=== PATIENT | female | born 1955 | race Caucasian/White ===

== ENCOUNTER 2019-02-22 08:30 | Observation (INO) | payer MEDICARE, OTHER, SELFPAY ==
[2019-02-08 08:44] VITALS: BMI 31.3
[2019-02-21] VITALS (14 sets, daily range): BP systolic 108–153; BP diastolic 57–90; PULSE 55–71; RESP 15–19; TEMP 35.9–37.4; O2SAT 97–100; BMI 31.2
--- NOTE | 2019-02-21 | DI.RAD.S_ITS ---
PROCEDURE: XR KNEE LT 1TO2V INDICATIONS: TOTAL KNEE TECHNIQUE: 2 view(s) of the knee acquired. COMPARISON: None. FINDINGS: Bones: Patient is status post knee joint arthroplasty. Hardware components are in expected positions. Visualized bony structures are intact. Soft tissues: Overlying postoperative changes are noted. IMPRESSION: Postop changes from left total knee arthroplasty with anatomic left knee alignment. Dictated by: Vel Garcia M.D. on 02/21/2019 at 14:22 Approved by: Vel Garcia M.D. on 02/21/2019 at 14:22
[2019-02-21] MEDS: LACTATED RINGERS 1,000 ML 42 ML IV ×2 (10:56→12:49)
--- NOTE | 2019-02-21 11:27 | PM.PREOP ---
Pre-operative Note Interval Note History & Physical reviewed/Exam performed by Physician: Yes Changes to H&P: No
--- NOTE | 2019-02-21 11:28 | PM.OP.1 ---
Operative Date/Time/Diagnoses Date of procedure: 02/21/19 Time of procedure: 13:11 Pre-op diagnosis: Left knee osteoarthritis Post-op diagnosis: same Procedure & Clinicians Procedure: Left total knee arthroplasty Same procedure as scheduled: Yes Indications: The patient presents today for total knee arthroplasty after failure of conservative treatment. The nature of the procedure including the risks and benefits, alternatives, postoperative course and expected outcome were discussed and all questions answered. Consent was obtained. Operative site confirmed and marked. Surgeon: Errol Cook Associate Professor Computer Science: Sandi Matta Anesthesia Type: Spinal and Local Operative Notes Findings: Severe osteoarthritis with varus alignment. Closure Type: primary Specimen(s): none sent Prosthetic devices, grafts, tissues, transplants, or devices: Johnson Persona TKA 7N CR femoral component, E stemmed tibial component, 11 EF MC polyethylene tray and 35 mm all poly patella. Applied: implant(s) Estimated Blood Loss (mL): 50 Blood products transfused: none Tourniquet time (min): 49 Procedure in detail: The patient was taken to the operative suite and placed under spinal anesthesia. The patient was given prophylactic antibiotics prior to surgery. The patient was also given tranexamic acid, 1 g, just prior to surgery for postoperative hemostasis. The lateral knee was prepped and the joint injected with 20 mL of 1% Lidocaine with epinephrine. The knee was then prepped and draped in usual sterile fashion. The leg was exsanguinated with an Esmarch dressing and the tourniquet raised to 250 torr. A 15 cm anterior incision was made. Next a medial trivector arthrotomy was made. The extensor mechanism was marked to ensure accurate repair. Initial exposing dissection was carried out medially and laterally. The knee was then extended and the patellar thickness was measured and a cut made removing approximately 9 mm of bone. The patella was then sized and drilled. Some excess lateral bone was excised and the patellofemoral ligament released. The knee was then flexed and the intramedullary femoral guide shivani placed. The distal femoral cut was made in 5 ? of valgus at the + 0 position. The femoral size was measured and the appropriate cutting block was then placed and the anterior, posterior and chamfer cuts made. The extra medullary tibial alignment shivani was then placed along the anatomic axis of the tibia approximating the normal slope. The guide was set to remove approximately 10 mm from the less affected lateral side. The proximal tibial cut was then made with an oscillating saw. All meniscus and bony debris was then removed. Flexion extension gaps were checked. There was mild tightness medially as expected from her deformity. This was corrected with routine osteophyte and exposing releases as well as percutaneous release of the MCL with an 18 gauge needle. The soft tissues were then injected with a combination of 20 mL of half percent Marcaine with epinephrine and 20 mL of Exparel. The trial components were then placed. The knee went into full extension and flexion beyond 120?. There was excellent medial- lateral balance throughout motion with just slight increased lateral laxity compared to medial in both flexion and extension. Patellar tracking was excellent. The trial components were removed and the knee was cleansed with Pulsavac irrigation and dried. The final components were cemented in with high viscosity vacuum mixed bone cement with antibiotics. The knee was held in extension and the patellar clamp until the cement had adequately cured. The knee was irrigated and inspected for any further debris. The knee was then irrigated with dilute Betadine solution. The extensor mechanism was closed with 5 interrupted #1 Vicryl sutures in 90 degrees of flexion. The joint was then injected with a combination of 1 g of tranexamic acid and 20 mL of quarter percent Marcaine with epinephrine. The subcutaneous tissue was closed with 2-0 Vicryl. The skin was closed with contreras and surgical adhesive. An Aquacell dressing and Sp wrap were then applied. The patient tolerated the procedure well and was returned to recovery room in good condition. Complications: none Condition: stable Disposition: PACU Plan for aftercare: [facility] protocol for total knee arthroplasty.
[2019-02-21] MEDS: MIDAZOLAM 2 MG/2 ML VIAL 1 MG IV (11:29)
[2019-02-21] MEDS: ACETAMINOPHEN 325 MG TABLET 975 MG PO ×3 (11:37→23:14)
[2019-02-21] MEDS: fentaNYL 100 MCG/2 ML INJ 50 MCG IV (11:39)
[2019-02-21] MEDS: PREGABALIN 75 MG CAPSULE PO (11:39)
--- NOTE | 2019-02-21 11:41 | SUR.PREOP ---
Block start time [1129] . Monitoring initiated and maintained throughout procedure. Oxygen and medications given per anesthesiologist instructions. Patient remained stable throughout procedure, no adverse reactions noted. Block end time [1135].
[2019-02-21] MEDS: CEFAZOLIN 2 GM/100 ML FROZ.PIGGY IV ×2 (11:47→20:03)
--- NOTE | 2019-02-21 12:08 | SUR.OPER ---
Supine on padded OR bed. Pillow under head, arms secured on padded armboards <90 degree abduction. Safety belt across torso. Non-operative leg secured with tape over blanket over lower leg. Operative leg secured in DeMayo/Lefty positioner. Foam padded brace at thigh of operative leg.
[2019-02-21] MEDS: LIDOCAINE 1% W/EPI INJ 20 ML INJ (12:19)
[2019-02-21] MEDS: BUPIVACAINE 0.5% W/ EPI (PF) 20 ML, BUPIVACAINE LIPOSOME 266 MG, SODIUM CHLORIDE 0.9% 2... INJ (12:21)
[2019-02-21] MEDS: BUPIVACAINE 0.25% W/ EPI (PF) 20 ML, TRANEXAMIC ACID 1,000 MG, SODIUM CHLORIDE 0.9% 10 ML INJ (12:24)
--- NOTE | 2019-02-21 14:37 | PC.NURSE ---
1420 Pt arrived to rm 216 via bed from PACU. Pt is awake, A&Ox4. Sats 100% on r/a. VS wnl. family at bedside. started IVF. Pt denies pain. able to move legs/ankle waves. Taking in po fluids.
[2019-02-21] MEDS: LACTATED RINGERS 1,000 ML 125 ML IV ×2 (14:45→23:14)
[2019-02-21] MEDS: OXYCODONE IR 5 MG TABLET PO ×2 (17:05→20:39)
[2019-02-21] MEDS: ASPIRIN EC 81 MG TABLET PO (20:39)
[2019-02-22] MEDS: OXYCODONE IR 5 MG TABLET PO ×5 (02:57→23:47)
--- NOTE | 2019-02-22 03:09 | PC.NURSE ---
Patient is alert and oriented. At shift change stated pain was 3/10 and tolerable and was medicated with scheduled Tylenol per evening RN. Now woke up and got up to [facility] [place] 1 assist + walker but began having 9/10 sharp pain with the movement; medicated with Oxycodone and ice applied once back to bed and now states it is starting to calm down with lying still. Breath sounds CTA with RA sat of 97-99%. HRR. Denies nausea. BT present but denies flatus. Denies dysuria, frequency or urgency and is continent of urine. Dressing to left LE with mitch wrap is CDI. CMS intact bilaterally. Wearing bilateral SCD's. Was able to lift legs in/out of bed without assistance. Able to move self in bed. Fall risk score is moderate; bed alarm is activated.
[2019-02-22 03:11] VITALS: BP 129/82; PULSE 69; RESP 20; TEMP 36.7; O2SAT 99
[2019-02-22] MEDS: CEFAZOLIN 2 GM/100 ML FROZ.PIGGY IV (04:32)
[2019-02-22 05:37] LABS: Hematocrit 37.7 % (36-46); Hemoglobin 13.2 g/dL (12.0-16.0)
[2019-02-22] MEDS: LEVOTHYROXINE 125 MCG TABLET PO (06:07)
[2019-02-22] MEDS: HYDROMORPHONE 2 MG TABLET PO (08:10)
[2019-02-22] MEDS: ACETAMINOPHEN 325 MG TABLET 975 MG PO ×3 (08:10→21:00)
[2019-02-22] MEDS: ASPIRIN EC 81 MG TABLET PO ×2 (08:10→22:05)
[2019-02-22 08:43] VITALS: BP 134/74; PULSE 67; RESP 16; TEMP 37.7; O2SAT 97
--- NOTE | 2019-02-22 09:15 | PT.IIE ---
Current Diagnoses Bilateral primary osteoarthritis of knee (02/21/19) Surgery Performed Operation Date: 02/21/19 12:30 Actual Procedures p Total Knee Arthroplasty(Left) - Errol Cook MD Surgical History (Last Updated 02/08/19 @ 09:12 by Luz Spann, RN) History of arthroplasty of right knee (Acute ~2012) History of bladder suspension procedure (Acute ~12/1999) History of left nephrectomy (Acute ~03/2011) Hx of appendectomy (Acute ~03/2007) Hx of cholecystectomy (Acute ~06/2011) Medical History (Last Updated 02/08/19 @ 09:12 by Luz Spann RN) Arthritis (Acute) Depression (Acute) Dry eye (Acute) Fatty liver (Acute) H/O: hysterectomy (Acute ~12/1999) Hearing impaired (Acute) Hypothyroidism (Acute) Osteoarthritis (Acute) Restless legs syndrome (RLS) (Acute) Single kidney (Acute) Sleep apnea (Acute) Physical Therapy Inpatient Evaluation/Re-Eval M1 PT/OT-IP Prior Functional Status Start: 02/22/19 12:56 Freq: NEEDED Status: Active Protocol: Document 02/22/19 09:15 AB (Rec: 02/22/19 13:04 AB [id number]) Medical Review Prior Functional Status Medical History Reviewed Yes Communication able to make needs known Mobility and Gait pt stated that she is independent with all mobilities and ambulation without AD Social History Household Members significant other Living Arrangements House Number of Floors (Floors) One Floor Number of Stairs To Enter/Railing? 1 step to enter Home Environment Standard Height Toilet Tub/Shower Home Equipment Front Wheel Walker Straight Cane Hand Held Shower Grab Bars In Shower M2 PT-IP Current Condition Start: 02/22/19 12:56 Freq: NEEDED Status: Active Protocol: Document 02/22/19 09:15 AB (Rec: 02/22/19 13:04 AB [id number]) Physical Therapy Current Condition Current Condition Evaluation Date 02/22/19 Treatment Diagnosis s/p L TKA; difficulty in walking Onset Date 02/21/19 Weight Bearing Status Weight Bearing Status Weight Bear as Tolerated M3 PT-IP Subjective Start: 02/22/19 12:56 Freq: NEEDED Status: Active Protocol: Document 02/22/19 09:15 AB (Rec: 02/22/19 13:04 AB [id number]) Subjective Physical Therapy Visit Type Type Initial Evaluation Visit Start Time 09:15 Visit Stop Time 10:02 Total Visit Minutes 47 Number of MEDICAL ACCOUNTS RECEIVABLE SPECIALIST Visits 3 Physical Therapy Visit Comments Patient Comments pt agreeable to do PT Therapy Pain Assessment Pain When Pain Assessed At Rest Pain Present Pain Present Pain Reported Location Left Knee Intensity 4 Scale Used Numeric (1 - 10) Pain Management Techniques Apply Cold Re-positioning Timing of Activity with Medications M4 PT-IP Mobility and Gait Start: 02/22/19 12:56 Freq: NEEDED Status: Active Protocol: Document 02/22/19 09:15 AB (Rec: 02/22/19 13:04 [id number]) PT-Bed Mobility Assessment Supine to Sit Supine to Sit Minimal Assistance 1 Person Assistance Sit to Supine Sit to Supine Minimal Assistance 1 Person Assistance Scooting Scooting to Edge of Bed Standby Assistance PT-Transfer Assessment Sit to and From Stand Sit to and from Stand Minimal Assistance 1 Person Assistance Use of Upper Extremities Equipment Transfer Assistive Device Gait Belt Front Wheeled Walker Orthotic/Prosthetic Devices or Brace: No Transfers Transfer Destination Chair Transfer Technique Stand Step Pivot Transfer Ability Level of Assist 1 Person Assistance Comments Mobility Comments pt refused to stay up on the chair but agreed to ambulate Gait Assessment Gait Gait Assistance Required: Minimum Assistance Distance (Feet) 20 Able to Maintain Weight Bearing Status Yes During Gait Assistive Devices Assistive Device Gait Belt Front Wheeled Walker Orthotic/Prosthetic Devices or Brace: No Gait Deviations General Gait Pattern Antalgic Decreased Stride Length Decreased Feet Clearance Factors Limiting Gait Function Factors Limiting Gait Function Decreased Activity Tolerance Decreased Strength Limited Range of Motion Pain Poor Balance Poor Safety Awareness Comments Gait Comments pt with increase L knee flexion during late stance and requires cues to activate L quads PT-Balance Assessment Sitting Balance and Reactions Static Sitting Balance Ability Good Dynamic Sitting Balance Ability Good Standing Balance and Reactions Static Standing Balance Ability Fair Dynamic Standing Balance Ability Fair Device Used FWW M5 PT-IP Objective Assessments Start: 02/22/19 12:56 Freq: NEEDED Status: Active Protocol: Document 02/22/19 09:15 AB (Rec: 02/22/19 13:04 [id number]) Orientation Orientation/Cognition Level of Alertness Alert Orientation Name Age Birthday Month Date Year Day of Week Place Situation Language Function Ability No Deficits Noted Safety Awareness Understands Safety Issues Memory Description No Deficits Noted Gross Range of Motion Lower Extremity ROM Assessment Left Impaired Impairments L knee flexion: 30 deg L knee extension: 20 deg lacking to neutral Strength Lower Extremity Strength Assessment Left Impaired Hip 3+/5 Knee 3-/5 Coordination Assessment Gross Coordination Gross Coordination WNL Sensation Assessment Sensation Gross Sensation WNL Muscle Tone Muscle Tone WNL Yes M6 PT-IP Treatment Start: 02/22/19 12:56 Freq: NEEDED Status: Active Protocol: Document 02/22/19 09:15 AB (Rec: 02/22/19 13:04 AB [id number]) Physical Therapy Treatment Exercises Exercises Quad Sets Heel Slides Education Education Provided Precautions Weight Bearing Status Post-Op Packet Safety M7 PT-IP Assessment and Plan Start: 02/22/19 12:56 Freq: NEEDED Status: Active Protocol: Document 02/22/19 09:15 AB (Rec: 02/22/19 13:04 AB [id number]) PT Summary Assessment and Plan Potential Rehabilitation Potential Fair Status of Condition at Evaluation Evolving Summary Impairments Pain ROM Strength Balance Coordination Sensation Tone Cognition Bed Mobility Transfers Gait Activity Tolerance Assessment Summary pt unable to tolerate much activity with c/o increas L knee pain. pt requires mod A with mobility and cues for techniques and safety. d/c plan depending on progress and if significant other will be able to safely assist pt. will conduct caregiver training and stair training when appropriate. Goals Bed Mobility Goal Standby Assistance Transfer Goal Standby Assistance Front Wheeled Walker Gait Goal Standby Assistance Front Wheel Walker Gait Distance 150 Other Goals up/down 1 step using FWW SBA Days to Meet Goals 5 Frequency of Treatment Frequency Of Treatment Twice a Day Treatment Plan Physical Therapy Treatment Plan Bed Mobility Training Transfer Training Gait Training Therapeutic Exercise Balance Retraining Post Op Education Discharge Planning Hot or Cold Pack Neuromuscular Re-ed Coordination Retraining Manual Therapy Recommendations To Nursing Amount of Assist Needed 1 Person Assist Discharge Recommendations PT Discharge Recommendations Home with Assistance SNF Rehab Outpatient PT Other Discharge Recommendations depending on progress: home with assist/outpt PT vs SNF
--- NOTE | 2019-02-22 09:56 | CM.IDA ---
Initial DCP Assessment Note: Pt is a 63 yo female, resident of [place]. Pt is POD#1 from left TKA w/Dr Cook. PCP: Taya Bowman Payer: Medicare/[employer] Direct Met w/pt this morning, very briefly, introduced role. Pt looked to be in a lot of distress and states she is in a lot of pain this morning. Pt has not seen PT yet but has gotten up to the [facility] a few times which she says put her in a lot of pain. RN aware. Pt discussed in multidisciplinary rounds; she will likely be cleared to return home w/assist from her SO but will remain here tonight and likely DC tomorrow. PT pending. ELIGIO Rendon Discharge Planning/Care Management CM Discharge Assessment Start: 02/22/19 09:53 Freq: Status: Active Protocol: Document 02/22/19 09:53 KRISHNA (Rec: 02/22/19 09:56 [id number]) Discharge Planning Assessment Assigned Customs Compliance Manager ELIGIO Alvarado DPOA/Assigned Designee Name Isrrael Peoples (S.O.) Patricia Reyes (daughter) Contact Information Isrrael: [phone] Patricia: Advance Directives? Yes Advance Directives on File No History Provided By Patient Prior Living Arrangements House Household Members significant other Type of transporation used prior to Drives own vehicle admit Independent with ADL's Yes Is patient alert and oriented? Yes Barriers to Discharge Yes Comment Pain control which is expected to improve over the next 24 hrs Discharge Plan Home Transportation Arrangement Family Referrals Initiated None needed Whiteboard Updated in Patient Room with Yes name and ext. # of Customs Compliance Manager Review Status In Process
--- NOTE | 2019-02-22 10:13 | PM.PNPO.1 ---
Subjective Date Patient Seen: 02/22/19 Time Patient Seen: 10:13 Interval history: Hospital day 2, postop day 1 following left total knee arthroplasty by Dr. Cook. Patient remained stable postoperatively. Did have significant increase in knee pain earlier this morning requiring Dilaudid 2 mg for pain. She had been getting oxycodone. She has not had any physical therapy yet. Um she is a [facility] patient. She does have prescriptions at home for postop oxycodone and Vistaril. She is scheduled to go to [facility] in [place]. She did have a right total knee done few years ago. Exam Vital Signs (past 8 hours): - 02/22/19 03:11 02/22/19 08:43 Temperature 98.0 F 99.9 F H Pulse Rate 69 67 Respiratory Rate 20 16 Blood Pressure 129/82 134/74 Pulse Oximetry 99 97 Oxygen Delivery Method Room Air Oxygen Flow Rate 0 Narrative Exam Narrative: Alert, oriented in no acute distress sitting on commode. Left leg Sp wrap an Aquacel dressing to left knee is dry without drainage or inflammation. Mild swelling of knee and calf. Calf is soft and nontender. Good pulses distally. Limited extension of knee from sitting position. Patient has limited weight-bearing to the left leg with using walker to transfer from commode to bed. Objective Labs Result Diagrams: 02/22/19 05:15 Labs: Laboratory Results - last 24 hr 02/22/19 05:15 Hgb 13.2 Hct 37.7 Assessment & Plan Post-op Postoperative Procedures Operation Date: 02/21/19 12:30 Actual Procedures Side Surgeon p Total Knee Arthroplasty Left Errol Cook MD Plan: Will have patient state today to work with PT and get better pain control. Anticipate discharge home tomorrow if stable. Quality VTE Deep Vein Thrombosis/Pulmonary Embolism Present on Admission: No
--- NOTE | 2019-02-22 10:17 | P.PN_ITS ---
Subjective Date Patient Seen: 02/22/19 Time Patient Seen: 10:13 Interval history: Hospital day 2, postop day 1 following left total knee arthroplasty by Dr. Cook. Patient remained stable postoperatively. Did have significant increase in knee pain earlier this morning requiring Dilaudid 2 mg for pain. She had been getting oxycodone. She has not had any physical therapy yet. Um she is a [facility] patient. She does have prescriptions at home for postop oxycodone and Vistaril. She is scheduled to go to [facility] in [place]. She did have a right total knee done few years ago. Exam Vital Signs (past 8 hours): - 02/22/19 03:11 02/22/19 08:43 Temperature 98.0 F 99.9 F H Pulse Rate 69 67 Respiratory Rate 20 16 Blood Pressure 129/82 134/74 Pulse Oximetry 99 97 Oxygen Delivery Method Room Air Oxygen Flow Rate 0 Narrative Exam Narrative: Alert, oriented in no acute distress sitting on commode. Left leg Sp wrap an Aquacel dressing to left knee is dry without drainage or inf lammation. Mild swelling of knee and calf. Calf is soft and nontender. Good pulses distally. Limited extension of knee from sitting position. Patient has limited weight-bearing to the left leg with using walker to transfer from commode to bed. Objective Labs Result Diagrams: 02/22/19 05:15 Labs: Laboratory Results - last 24 hr 02/22/19 05:15 Hgb 13.2 Hct 37.7 Assessment & Plan Post-op Postoperative Procedures Operation Date: 02/21/19 12:30 Actual Procedures Side Surgeon p Total Knee Arthroplasty Left Errol Cook MD Plan: Will have patient state today to work with PT and get better pain control. Anticipate discharge home tomorrow if stable. Quality VTE Deep Vein Thrombosis/Pulmonary Embolism Present on Admission: No
[2019-02-22] MEDS: HYDROMORPHONE 0.5 MG INJ IV (11:03)
--- NOTE | 2019-02-22 14:30 | PT.IPTN ---
Current Diagnoses Bilateral primary osteoarthritis of knee (02/21/19) Surgery Performed Operation Date: 02/21/19 12:30 Actual Procedures p Total Knee Arthroplasty(Left) - Errol Cook MD Physical Therapy Treatment Note M2 PT-IP Current Condition Start: 02/22/19 12:56 Freq: NEEDED Status: Active Protocol: Document 02/22/19 09:15 AB (Rec: 02/22/19 13:04 AB [id number]) Physical Therapy Current Condition Current Condition Evaluation Date 02/22/19 Treatment Diagnosis s/p L TKA; difficulty in walking Onset Date 02/21/19 Weight Bearing Status Weight Bearing Status Weight Bear as Tolerated M3 PT-IP Subjective Start: 02/22/19 12:56 Freq: NEEDED Status: Active Protocol: Document 02/22/19 14:30 AB (Rec: 02/22/19 17:45 AB [id number]) Subjective Physical Therapy Visit Type Type Treatment Note Visit Start Time 14:30 Visit Stop Time 15:06 Total Visit Minutes 36 Number of ELECT[employer]PA[employer]ERS Visits 0 Physical Therapy Visit Comments Patient Comments pt agreed to do PT Therapy Pain Assessment Pain When Pain Assessed At Rest Pain Present Pain Present Pain Reported Location Left Knee Intensity 4 Scale Used increarsed to 8/10 with mobility Pain Management Techniques Apply Cold Re-positioning Timing of Activity with Medications M4 PT-IP Mobility and Gait Start: 02/22/19 12:56 Freq: NEEDED Status: Active Protocol: Document 02/22/19 14:30 AB (Rec: 02/22/19 17:45 AB [id number]) PT-Bed Mobility Assessment Supine to Sit Supine to Sit Maximum Assistance 1 Person Assistance Sit to Supine Sit to Supine Maximum Assistance 1 Person Assistance PT-Transfer Assessment Sit to and From Stand Sit to and from Stand Minimal Assistance 1 Person Assistance Equipment Transfer Assistive Device Gait Belt Front Wheeled Walker Orthotic/Prosthetic Devices or Brace: No Transfers Transfer Destination Chair Transfer Technique Stand Step Pivot Transfer Ability Level of Assist Minimal Assistance Comments Mobility Comments pt with increase LLE guarding and c/o iincrease pain with knee flexion. pt educated on importance of achieving normal ROM on knee and pt understood but continues to not wanting much to bend L knee. pt requiring max A to support LLE during bed mobility. Gait Assessment Gait Gait Assistance Required: Minimum Assistance Distance (Feet) 30 Able to Maintain Weight Bearing Status Yes During Gait Assistive Devices Assistive Device Gait Belt Front Wheeled Walker Orthotic/Prosthetic Devices or Brace: No Gait Deviations General Gait Pattern Antalgic Decreased Feet Clearance Factors Limiting Gait Function Factors Limiting Gait Function Decreased Activity Tolerance Decreased Strength Limited Range of Motion Pain Poor Balance Poor Safety Awareness Comments Gait Comments pt presents with slight increase knee flexion during late stance phase requiring cues to activate quads and stabilie knee. M5 PT-IP Objective Assessments Start: 02/22/19 12:56 Freq: NEEDED Status: Active Protocol: Document 02/22/19 09:15 AB (Rec: 02/22/19 13:04 AB [id number]) Orientation Orientation/Cognition Level of Alertness Alert Orientation Name Age Birthday Month Date Year Day of Week Place Situation Language Function Ability No Deficits Noted Safety Awareness Understands Safety Issues Memory Description No Deficits Noted Gross Range of Motion Lower Extremity ROM Assessment Left Impaired Impairments L knee flexion: 30 deg L knee extension: 20 deg lacking to neutral Strength Lower Extremity Strength Assessment Left Impaired Hip 3+/5 Knee 3-/5 Coordination Assessment Gross Coordination Gross Coordination WNL Sensation Assessment Sensation Gross Sensation WNL Muscle Tone Muscle Tone WNL Yes M6 PT-IP Treatment Start: 02/22/19 12:56 Freq: NEEDED Status: Active Protocol: Document 02/22/19 14:30 AB (Rec: 02/22/19 17:45 AB [id number]) Physical Therapy Treatment Exercises Exercises Heel Slides Education Education Provided Precautions Weight Bearing Status Safety Other Treatments Other Treatment Performed completed heel slides in sitting with initial 5 sec hold and increases intermittently with each repetition. M7 PT-IP Assessment and Plan Start: 02/22/19 12:56 Freq: NEEDED Status: Active Protocol: Document 02/22/19 14:30 AB (Rec: 02/22/19 17:45 AB [id number]) PT Summary Assessment and Plan Potential Rehabilitation Potential Fair Summary Impairments Pain ROM Strength Balance Coordination Sensation Tone Cognition Bed Mobility Transfers Gait Activity Tolerance Progress Towards Goals Slow Progress due to Pain Slow Progress due to Activity Tolerance Assessment Summary pt requires requires min to max A with mobility and unable to tolerate much activity due to c/o increase pain. has refused to stay up on the chair after tx session and was educated on importance of mobility and also movement on L knee. will conduct caregiver training when appropriate. will continue to monitor progress . Goals Bed Mobility Goal Standby Assistance Transfer Goal Standby Assistance Front Wheeled Walker Gait Goal Standby Assistance Front Wheel Walker Gait Distance 150 Other Goals up/down 1 step using FWW SBA Days to Meet Goals 5 Frequency of Treatment Frequency Of Treatment Twice a Day Treatment Plan Physical Therapy Treatment Plan Bed Mobility Training Transfer Training Gait Training Therapeutic Exercise Balance Retraining Post Op Education Discharge Planning Hot or Cold Pack Neuromuscular Re-ed Coordination Retraining Manual Therapy Recommendations To Nursing Amount of Assist Needed 1 Person Assist Discharge Recommendations PT Discharge Recommendations Home with Assistance SNF Rehab Outpatient PT Other Discharge Recommendations depending on progress: home with assist/outpt PT vs SNF
[2019-02-22 15:35] VITALS: BP 140/68; PULSE 66; RESP 15; TEMP 36.6; O2SAT 97
--- NOTE | 2019-02-22 19:04 | PC.NURSE ---
Pt A/O, lying in bed with left calf on pillow, ice packs to knee, noted mid thigh to ankle non pitting edema, aquacell CDI. Rates pain 4/10, medicated with percolone 5mg PO. 97%RA, LS clear. BT+ denies nausea. L hand SL. Call light in reach
[2019-02-22 19:40] VITALS: BP 146/68; PULSE 64; RESP 16; TEMP 36.8; O2SAT 97
[2019-02-22 23:25] VITALS: BP 147/66; PULSE 66; RESP 16; TEMP 37; O2SAT 96
--- NOTE | 2019-02-22 23:53 | PC.NURSE ---
Addendum entered by Becka Saab R.N. 02/23/19 06:00: Medicated for 5/10 left knee pain with Oxycodone. States she feels pain is better controlled tonight. Addendum entered by Becka Saab R.N. 02/23/19 03:00: Medicated with Oxycodone for complaint of 4/10 left knee pain. Original Note: Patient is alert and oriented. Breath sounds CTA with RA sat of 96%. HRR with elevated BP of 147/66. Denies nausea. BT present and is passing flatus. Denies dysuria, frequency or urgency. Able to turn self in bed and uses walker and 1 assist when out of bed. Aquacel dressing to left knee is CDI. Complains of 6/10 pain; medicated with Oxycodone and ice applied. CMS intact. Wearing bilateral SCD's. Moderate fall risk; bed alarm is activated.
[2019-02-23] MEDS: OXYCODONE IR 5 MG TABLET PO ×4 (02:59→12:37)
[2019-02-23 03:05] VITALS: BP 146/78; PULSE 65; RESP 16; TEMP 36.8; O2SAT 100
[2019-02-23] MEDS: LEVOTHYROXINE 125 MCG TABLET PO (05:56)
[2019-02-23 08:00] VITALS: BP 142/91; PULSE 72; RESP 16; TEMP 36.8; O2SAT 97
[2019-02-23] MEDS: ACETAMINOPHEN 325 MG TABLET 975 MG PO (09:24)
[2019-02-23] MEDS: ASPIRIN EC 81 MG TABLET PO (09:24)
[2019-02-23] MEDS: SODIUM CHLORIDE 0.9% FLUSH 10 ML IV (09:26)
--- NOTE | 2019-02-23 11:13 | PT.IPTN ---
Current Diagnoses Bilateral primary osteoarthritis of knee (02/21/19) Surgery Performed Operation Date: 02/21/19 12:30 Actual Procedures p Total Knee Arthroplasty(Left) - Errol Cook MD Physical Therapy Treatment Note M2 PT-IP Current Condition Start: 02/22/19 12:56 Freq: NEEDED Status: Active Protocol: Document 02/22/19 09:15 AB (Rec: 02/22/19 13:04 AB [id number]) Physical Therapy Current Condition Current Condition Evaluation Date 02/22/19 Treatment Diagnosis s/p L TKA; difficulty in walking Onset Date 02/21/19 Weight Bearing Status Weight Bearing Status Weight Bear as Tolerated M3 PT-IP Subjective Start: 02/22/19 12:56 Freq: NEEDED Status: Active Protocol: Document 02/23/19 11:13 AB (Rec: 02/23/19 12:46 AB [id number]) Subjective Physical Therapy Visit Type Type Treatment Note Visit Start Time 11:13 Visit Stop Time 11:54 Total Visit Minutes 41 Number of [employer]QU[employer]MENT MECH[employer]IC Visits 0 Physical Therapy Visit Comments Patient Comments pt agreeable to do PT. spouse present for caregiver training Therapy Pain Assessment Pain When Pain Assessed At Rest Pain Present Pain Present Pain Reported Location Left Knee Scale Used pain scale not stated but said pain is not too bad Pain Behaviors Guarding Pain Management Techniques Re-positioning Timing of Activity with Medications M4 PT-IP Mobility and Gait Start: 02/22/19 12:56 Freq: NEEDED Status: Active Protocol: Document 02/23/19 11:13 AB (Rec: 02/23/19 12:46 AB [id number]) PT-Bed Mobility Assessment Supine to Sit Supine to Sit Minimal Assistance Scooting Scooting to Edge of Bed Standby Assistance PT-Transfer Assessment Sit to and From Stand Sit to and from Stand Contact Guard Assistance Equipment Transfer Assistive Device Gait Belt Front Wheeled Walker Orthotic/Prosthetic Devices or Brace: No Transfers Transfer Destination Chair Transfer Technique Stand Step Pivot Transfer Ability Level of Assist Contact Guard Assistance Comments Mobility Comments caregiver training conducted. completed bed mobility training and spouse as able to assist pt safely. caregiver training completed for use of safety belt, transfer training and ambulation and how to assist pt with stairs. caregiver was able to assist pt safely. Gait Assessment Gait Gait Assistance Required: Contact Guard Assist Distance (Feet) 100 Able to Maintain Weight Bearing Status Yes During Gait Assistive Devices Assistive Device Gait Belt Front Wheeled Walker Orthotic/Prosthetic Devices or Brace: No Gait Deviations General Gait Pattern Antalgic Decreased Stride Length Decreased Feet Clearance Factors Limiting Gait Function Factors Limiting Gait Function Decreased Activity Tolerance Decreased Strength Limited Range of Motion Pain Poor Balance Comments Gait Comments pt continues to use UE a lot for weight bearing through the FWW. educated on importance of using LLE, how to activate quads. Stair Climbing Assessment Evaluation Level of Assist On Stairs Minimal Assistance 1 Person Assistance Devices Stair Climbing Assistive Devices Front Wheel Walker Technique/Endurance Stair Climbing Direction Ascend and Descend Stair Climbing Technique Step to Step Number of Steps Climbed 1 Stair Climbing Set # Repetitions (reps) 2 Comments Stair Climbing Comments pt completed up/down platform step using FWW. pt went up the step backwards using FWW for support and required min A and cues. Pt completed again but spouse assisted and was able to assist pt safely. educated spouse on how to provide cues to pt. M5 PT-IP Objective Assessments Start: 02/22/19 12:56 Freq: NEEDED Status: Active Protocol: Document 02/22/19 09:15 AB (Rec: 02/22/19 13:04 AB [id number]) Orientation Orientation/Cognition Level of Alertness Alert Orientation Name Age Birthday Month Date Year Day of Week Place Situation Language Function Ability No Deficits Noted Safety Awareness Understands Safety Issues Memory Description No Deficits Noted Gross Range of Motion Lower Extremity ROM Assessment Left Impaired Impairments L knee flexion: 30 deg L knee extension: 20 deg lacking to neutral Strength Lower Extremity Strength Assessment Left Impaired Hip 3+/5 Knee 3-/5 Coordination Assessment Gross Coordination Gross Coordination WNL Sensation Assessment Sensation Gross Sensation WNL Muscle Tone Muscle Tone WNL Yes M6 PT-IP Treatment Start: 02/22/19 12:56 Freq: NEEDED Status: Active Protocol: Document 02/23/19 11:13 AB (Rec: 02/23/19 12:46 AB [id number]) Physical Therapy Treatment Education Education Provided Weight Bearing Status Safety M7 PT-IP Assessment and Plan Start: 02/22/19 12:56 Freq: NEEDED Status: Active Protocol: Document 02/23/19 11:13 AB (Rec: 02/23/19 12:46 AB [id number]) PT Summary Assessment and Plan Potential Rehabilitation Potential Good Summary Impairments Pain ROM Strength Balance Coordination Sensation Tone Cognition Bed Mobility Transfers Gait Activity Tolerance Progress Towards Goals Slow Progress due to Pain Assessment Summary Caregiver training conducted and spouse was able to assist pt safely. pt plans to go home later on today. pt may go home when medically stable. Goals Bed Mobility Goal Standby Assistance Transfer Goal Standby Assistance Front Wheeled Walker Gait Goal Standby Assistance Front Wheel Walker Gait Distance 150 Other Goals up/down 1 step using FWW SBA Days to Meet Goals 5 Frequency of Treatment Frequency Of Treatment Twice a Day Treatment Plan Physical Therapy Treatment Plan Bed Mobility Training Transfer Training Gait Training Therapeutic Exercise Balance Retraining Post Op Education Discharge Planning Hot or Cold Pack Neuromuscular Re-ed Coordination Retraining Manual Therapy Recommendations To Nursing Amount of Assist Needed 1 Person Assist Discharge Recommendations PT Discharge Recommendations Home with Assistance Outpatient PT
--- NOTE | 2019-02-23 11:36 | PM.DS.1 ---
History of Present Illness Date Patient Seen: 02/23/19 Time Patient Seen: 11:37 Chief complaint: [id number] LEFT TKA Narrative: Hospital day 3, postop day 2 following left total knee arthroplasty. Patient remained stable postoperatively. She progressed better with physical therapy over the last 24 hours. Pain better controlled. She is ready for discharge home today. Discharge Providers Date of admission: 02/21/19 10:18 Discharge Date: 02/23/19 Primary care physician: Taya Bowman MD Consults: 02/21/19 14:21 Consult to Discharge Planning Routine Comment: Consult to Physical Therapy Evaluate & Treat Comment: Physician Instructions: postop TKA protocol Consult to Respiratory Therapy Evaluate & Treat Comment: Physician Instructions: Evaluate and treat Discharge provider: Richie Brian PA-C Summary Discharge Diagnosis: Status post left total knee arthroplasty. Hospital Course: Patient brought to hospital on 02/21/2019 for above noted surgery. She remained stable postoperatively. Had increased pain on postop day 1 and stayed in hospital. Doing much better on postop day 2 and ready for discharge to home. Status at Discharge Cognitive/behavioral status at discharge: oriented Functional status at discharge: uses cane/walker Overall status at discharge: patient is progressing back to baseline Time Spent with Patient Less than 30 minutes Exam Vital Signs (past 8 hours): - 02/23/19 08:00 Temperature 98.3 F Pulse Rate 72 Respiratory Rate 16 Blood Pressure 142/91 H Pulse Oximetry 97 Oxygen Delivery Method Room Air Oxygen Flow Rate 0 Const Other: Alert, oriented no acute distress resting in bed. Legs. Aquacel dressing to left knee is dry without drainage or inflammation. Mild swelling of the knee. No calf pain or swelling. Pulses symmetrical. Objective Labs Result Diagrams: 02/22/19 05:15 Discharge Plan Discharge Plan Patient Disposition: Home Discharge comment: Discharge home after cleared by PT. Patient scheduled to go to [facility]. She is a [facility] patient and has postoperative pain medication at home. Discharge Med Rec/Prescriptions Prescriptions: New acetaminophen 325 mg Tablet 975 mg PO TID Qty: 30 RF: 0 aspirin 81 mg Tablet,Delayed Release (Dr/Ec) 81 mg PO BID Qty: 60 RF: 0 Continued levothyroxine 125 mcg Tablet 125 mcg PO DAILY RF: 0 nitrofurantoin macrocrystal 100 mg Capsule 100 mg PO PRN PRN (Reason: single kidney, protect for UTI) RF: 0 Follow up/Referrals: Taya Bowman MD [Primary Care Provider] - Provider Discharge Instructions Diet: Diet as Tolerated Activity: Ambulate as tolerated. Use walker as needed. Cold/Heat Therapy: Cold pack to left knee as needed. Skin/Wound/Dressing Care Report to your healthcare provider any signs of infection, such as:: chills, fever, night sweats, increased pain, unusual drainage and unusual redness Dressing: Keep Aquacel dressing in place until postop visit. Visit Report/Discharge Packet Instructions: DI for Knee Replacement, How to Prevent Falls, DI for Postoperative Pain Stand Alone Forms: Surgery Discharge Visit Report Forms: Stroke Signs & Symptoms Discharge Data Primary Care Provider: Taya Bowman Attending Provider: Errol Cook Admdylan Date/Time: 02/21/19 10:18 Quality VTE Deep Vein Thrombosis/Pulmonary Embolism Present on Admission: No
--- NOTE | 2019-02-23 12:45 | CM.DPNOTE ---
DC Note: Pt discussed in multidisciplinary rounds this morning, pt feeling much better this morning and ready for DC home. Therapy team has also cleared pt for return home, caregiver training conducted this morning w/spouse. P: DC home today w/family to assist via pov, outpt PT. ELIGIO Rendon
--- NOTE | 2019-02-23 13:16 | PC.NURSE ---
Day Shift- Pain controlled with prn Oxycodone given X2 at 0900 & 1305. Left knee aquacell dressing CDI. Edema noted surrounding left knee, tender to inner knee with small amount of bruising noted. CMS+ PPP. PT stated pt okay to discharge home. pt has all belongings, SO Bhavesh present to drive pt home. Reviewed discharge summary packet with pt and her SO at bedside. has follow up appointment with surgery next week and OP PT sessions. No voiced concerns, is ready for discharge. 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
== END 2019-02-23 13:15 | disposition home or self-care (01) ==
LOC: AC 02-23 11:00 → OR 02-24 07:08 → AC 02-24 07:10
PROVIDERS: Admitting Provider Orthopaedic Surgery; PCP Family Medicine; Visit Provider Orthopaedic Surgery
PROC: 0SRD0JZ Replacement of Left Knee Joint with Synthetic Substitute, Open Approach (ICD-10-PCS; CPT 27447; principal; 2019-02-21 12:30)
DX: M17.12 Unilateral primary osteoarthritis, left knee (principal); G47.33 Obstructive sleep apnea (adult) (pediatric); G25.81 Restless legs syndrome; G89.18 Other acute postprocedural pain
CPT/HCPCS: 27447; 36415; 64447; 73560; 85014; 85018; 97116; 97162; 97530; C1776; G0378; C9290; G0379; J0690; J1170; J2250; J2704; J3010

== ENCOUNTER → 2023-03-02 09:39 | Outpatient (CLI) | payer MEDICARE, OTHER, SELFPAY ==
[2019-02-21 14:49] VITALS: BMI 31.2
--- NOTE | 2023-03-02 | DI.NM.S_ITS ---
PROCEDURE: NM BONE 3 PHASE RADIOPHARMACEUTICAL: 22.0 mCi Tc-99m MDP IV. INDICATIONS: PAIN DUE TO TOTAL KNEE REPLACEMENT TECHNIQUE: Multiple bone scintigrams were obtained after intravenous injection of Tc-99m MDP, including flow, blood pool, and delayed images centered to the region of interest. COMPARISON: [facility] [place], CR, XR KNEE 4+ VIEWS LEFT, 12/30/2022, 11:47. FINDINGS: Comparison x-ray demonstrates bilateral total knee arthroplasties. A triple phase bone scan was obtained, including flow, blood pool and delayed images centered to the knees. The flow and blood pool images demonstrate symmetrical vascular activity to the lower extremities. Delayed images demonstrate mild, symmetrically increased activity around knee prostheses, most compatible with postsurgical changes. No definitive scintigraphic findings to suggest prosthesis loosening or infection. IMPRESSION: 1. No definitive scintigraphic findings to suggest prosthesis loosening or infection. Dictated by: Sanjuana Gonzalez M.D. on 03/02/2023 at 16:49 Approved by: Sanjuana Gonzalez M.D. on 03/02/2023 at 18:59
== END ==
PROVIDERS: PCP Family Medicine; Referring Provider Orthopaedic Surgery Foot and Ankle Surgery; Visit Provider Orthopaedic Surgery Foot and Ankle Surgery
DX: T84.84XA Pain due to internal orthopedic prosthetic devices, implants and grafts, initial encounter (principal); Z96.653 Presence of artificial knee joint, bilateral
CPT/HCPCS: 78315; A9503